=== PATIENT | male | born 1990 | race Caucasian/White ===

== ENCOUNTER 2018-07-30 13:38 | Emergency (ER) | payer OTHER ==
[~2018-07-30] VITALS: Ht 182.9 cm; Wt 68.2 kg
[2018-07-30 13:56] VITALS: BP 156/78
== END 2018-07-30 14:48 | disposition home or self-care (01) ==
LOC: EMS 13:40
DX: F41.9 Anxiety disorder, unspecified (principal); F17.210 Nicotine dependence, cigarettes, uncomplicated
CPT/HCPCS: 99406